=== PATIENT | female | born 1985 | race African-American/Black ===

== ENCOUNTER 2018-03-27 10:35 | Emergency (ER) | payer MEDICAID | END 2018-03-27 12:13 | disposition left against medical advice (07) | LOC: ER 10:45 | DX: Z53.21 Procedure and treatment not carried out due to patient leaving prior to being seen by health care provider (principal) | CPT/HCPCS: 93005 ==

== ENCOUNTER 2019-02-15 22:05 | Emergency (ER) | payer MEDICAID ==
[~2019-02-15] VITALS: Ht 167.6 cm; Wt 79.0 kg
[2019-02-16] MEDS ORDERED: HYDROCODONE/ACETAMINOPHEN 5/325MG TABLET PO ONE (02:30)
[2019-02-16 03:21] VITALS: BP 125/69
== END 2019-02-16 03:32 | disposition home or self-care (01) ==
LOC: ER 22:05
DX: J40 Bronchitis, not specified as acute or chronic (principal); J06.9 Acute upper respiratory infection, unspecified; K04.7 Periapical abscess without sinus; F17.210 Nicotine dependence, cigarettes, uncomplicated
CPT/HCPCS: 71045; 81025; 99283

== ENCOUNTER 2021-01-22 21:55 | Emergency (ER) | payer MEDICAID ==
[~2021-01-22] VITALS: Ht 165.1 cm; Wt 82.6 kg
[2021-01-22 22:14] VITALS: BP 172/111
[2021-01-22 23:27] LABS: BASOPHILS % 0.4 % (0.0-2.0); EOSINOPHILS % 2.1 % (0.0-5.0); HEMATOCRIT. 38.9 % (36.0-48.0); HEMOGLOBIN. 13.3 g/dL (12.0-16.0); LYMPHOCYTES % 28.9 % (20.0-50.0); MEAN CORPUSCULAR VOLUME 85.1 fL (81.0-99.0); MEAN PLATELET VOLUME 7.9 fl (7.4-10.4); MONOCYTES % 9.9 % (2.0-8.0); NEUTROPHILS % 58.7 % (40.0-76.0); PLATELET 357 x1000/uL (130-400); RED BLOOD CELL COUNT 4.57 mill/uL (4.2-5.4); RED CELL DISTRIBUTION WIDTH 13.7 % (11.6-14.6)
== END 2021-01-23 01:01 | disposition left against medical advice (07) ==
LOC: ER 21:55
DX: N93.9 Abnormal uterine and vaginal bleeding, unspecified (principal); Z97.5 Presence of (intrauterine) contraceptive device
CPT/HCPCS: 36415; 85025; 99283